=== PATIENT | male | born 1945 | race African-American/Black ===

== ENCOUNTER → 2016-11-13 | Outpatient (CLI) | payer MEDICARE, MEDICAID | LOC: RAD 07:34 | PROVIDERS: ATTEND Internal Medicine | DX: R63.4 Abnormal weight loss (principal) | CPT/HCPCS: 74176 ==

== ENCOUNTER 2018-04-15 10:38 | Emergency (ER) | payer MEDICARE, MEDICAID ==
[2018-04-15 10:53] VITALS: BP 166/93
--- NOTE | 2018-04-15 11:12 | ER Document Report ---
ED General - General Chief Complaint: High Blood Pressure Stated Complaint: BLOOD PRESSURE Time Seen by Provider: 04/15/18 11:03 TRAVEL OUTSIDE OF THE [place] IN LAST 30 DAYS: No - Related Data Allergies/Adverse Reactions: No Known Allergies Allergy (Verified 02/18/14 13:28) Past Medical History - Social History Smoking Status: Former Smoker Chew tobacco use (# tins/day): No Frequency of alcohol use: None Drug Abuse: None Family History: Reviewed & Not Pertinent, Other Patient has suicidal ideation: No Patient has homicidal ideation: No - Past Medical History Cardiac Medical History: Reports: Hx Hypercholesterolemia, Hx Hypertension Pulmonary Medical History: Reports: Hx Bronchitis, Hx COPD Neurological Medical History: Reports: Hx Cerebrovascular Accident Renal/ Medical History: Reports: Hx Benign Prostatic Hyperplasia. Denies: Hx Peritoneal Dialysis GI Medical History: Reports: Hx Gastroesophageal Reflux Disease, Hx Hepatitis - Hepatitis C Musculoskeletal Medical History: Reports Hx Arthritis Psychiatric Medical History: Reports: Hx Dementia, Hx Depression Infectious Medical History: Reports: Hx Hepatitis - Hepatitis C Past Surgical History: Reports: Hx Cardiac Surgery - pacemaker, Hx Pacemaker - Immunizations Immunizations up to date: Yes Physical Exam - Vital signs Vitals: Temp Pulse Resp BP Pulse Ox 98 F 72 18 166/93 H 100 04/15/18 10:52 04/15/18 10:52 04/15/18 10:52 04/15/18 10:52 04/15/18 10:52 Course - Vital Signs Vital signs: Temp Pulse Resp BP Pulse Ox 98 F 72 18 166/93 H 100 04/15/18 10:52 04/15/18 10:52 04/15/18 10:52 04/15/18 10:52 04/15/18 10:52 Discharge - Discharge Clinical Impression: Hypertension Qualifiers: Hypertension type: essential hypertension Qualified Code(s): I10 - Essential ( primary) hypertension Condition: Good Instructions: High Blood Pressure, Requiring Treatment ([facility]) Additional Instructions: Blood pressure was elevated today. We recommend starting him on very low-dose amlodipine for blood pressure control. Would also recommend he follow-up with your primary care physician. Return to ER for any other concerns. Prescriptions: Amlodipine Besylate [Norvasc 2.5 mg Tablet] 2.5 mg PO DAILY #30 tablet Referrals: BROOKE BARTON MD [Primary Care Provider] - Follow up as needed ANN,SEFERINO, MD [ACTIVE STAFF] - Follow up as needed
== END 2018-04-15 11:18 | disposition home or self-care (01) ==
LOC: ER 10:38
DX: I10 Essential (primary) hypertension (principal); J44.9 Chronic obstructive pulmonary disease, unspecified; Z95.0 Presence of cardiac pacemaker; Z87.891 Personal history of nicotine dependence
CPT/HCPCS: 99283

== ENCOUNTER 2019-05-17 16:07 | Emergency (ER) | payer MEDICARE, MEDICAID ==
--- NOTE | 2019-05-17 16:31 | ER Document Report ---
ED Medical Screen (RME) - General Chief Complaint: Chest Pain Stated Complaint: CHEST PAIN Time Seen by Provider: 05/17/19 16:21 Primary Care Provider: SEFERINO ANN MD [Primary Care Provider] - Follow up as needed Mode of Arrival: Wheelchair Information source: Friend Notes: He is good to meet you 73-year-old male presented to ED for "heart hurting. The person who he went to room with states that the patient is very confused with dementia she went him a room and helps to take care of him. She states he has a history of high blood pressure and palpitations. She states that last week she he came to her and told her that his heart was hurting and then when she got ready to take him to the hospital he states he did not want to go to the hospital he was better. She states today that he came into hers that he had to sit down because he was short of breath and his heart was hurting. She states she brought him to the emergency room because she is not a doctor and does not know how to take care of him when he gets like this. Patient is confused but states he is not hurting at this time. I have greeted and performed a rapid initial assessment of this patient. A comprehensive ED assessment and evaluation of the patient, analysis of test results and completion of medical decision making process will be conducted by an additional ED providers. TRAVEL OUTSIDE OF THE [place] IN LAST 30 DAYS: No - Related Data Allergies/Adverse Reactions: No Known Allergies Allergy (Verified 05/17/19 16:08) Past Medical History - Past Medical History Cardiac Medical History: Reports: Hx Hypercholesterolemia, Hx Hypertension Pulmonary Medical History: Reports: Hx Bronchitis, Hx COPD Neurological Medical History: Reports: Hx Cerebrovascular Accident Renal/ Medical History: Reports: Hx Benign Prostatic Hyperplasia. Denies: Hx Peritoneal Dialysis GI Medical History: Reports: Hx Gastroesophageal Reflux Disease, Hx Hepatitis - Hepatitis C Musculoskeltal Medical History: Reports Hx Arthritis Psychiatric Medical History: Reports: Hx Dementia, Hx Depression Infectious Medical History: Reports: Hx Hepatitis - Hepatitis C Past Surgical History: Reports: Hx Cardiac Surgery - pacemaker, Hx Pacemaker - Immunizations Immunizations up to date: Yes Doctor's Discharge - Discharge Referrals: SEFERINO ANN MD [Primary Care Provider] - Follow up as needed
--- NOTE | 2019-05-17 17:09 | ER Document Report ---
ED General - General Chief Complaint: Chest Pain Stated Complaint: CHEST PAIN Time Seen by Provider: 05/17/19 16:21 Primary Care Provider: WILLIAM HOPKINS MD [ACTIVE STAFF] - Follow up in 3-5 days SEFERINO ANN MD [Primary Care Provider] - Follow up in 3-5 days Mode of Arrival: Wheelchair Notes: Patient is a 73-year-old male that presents to the emergency department for chief complaint of intermittent chest pain. Patient is a history of dementia, history of CAD as well as stenting, apparently has been having intermittent chest pain that was occurring last week, denies any pain at this time, he reports that the pain was not better or worse with rest or exertion, denies any associated shortness of breath. He apparently has been sundowning in the evenings as well, according to his landlord, that helps him out, apparently does not have family in the area. Patient is a poor historian overall, he denies having any pain at this time, denies shortness of breath, nausea, vomiting or abdominal pain. Denies having any dysuria hematuria. Past Medical History: Dementia, hypertension, CAD, medical noncompliance Past Surgical History: Pacemaker, PCI with stenting Social History: Former smoker, denies alcohol or drug use. Family History: Reviewed and noncontributory for presenting illness Allergies: Reviewed, see documented allergy list. REVIEW OF SYSTEMS: Other than noted above, the 12 point review of systems was reviewed with the patient and were negative, all pertinent findings are included in the HPI. PHYSICAL EXAMINATION: Vital signs reviewed, nursing noted reviewed. GENERAL: Elderly male, no acute distress. Alert to self and place and person, disoriented to date. HEAD: Atraumatic, normocephalic. EYES: Eyes appear normal, extraocular movements intact, sclera anicteric, conjunctiva are normal. ENT: nares patent, oropharynx clear without exudates. Moist mucous membranes. NECK: Normal range of motion, supple without lymphadenopathy LUNGS: Breath sounds clear to auscultation bilaterally and equal. No wheezes rales or rhonchi. No chest wall tenderness HEART: Regular rate and rhythm without murmurs ABDOMEN: Soft, nontender, normoactive bowel sounds. No rebound, guarding, or rigidity. No masses appreciated. EXTREMITIES: Nontender, good range of motion, no pitting or edema. NEUROLOGICAL: No focal neurological deficits. Moves all extremities s pontaneously Motor and sensory grossly intact on exam. PSYCH: Normal mood, normal affect. SKIN: Warm, Dry, normal turgor, no rashes or lesions noted on exposed skin TRAVEL OUTSIDE OF THE [place] IN LAST 30 DAYS: No - Related Data Allergies/Adverse Reactions: No Known Allergies Allergy (Verified 05/17/19 16:08) Past Medical History - General Information source: Friend - Social History Smoking Status: Former Smoker Family History: Reviewed & Not Pertinent, Other Patient has suicidal ideation: No Patient has homicidal ideation: No - Past Medical History Cardiac Medical History: Reports: Hx Hypercholesterolemia, Hx Hypertension Pulmonary Medical History: Reports: Hx Bronchitis, Hx COPD Neurological Medical History: Reports: Hx Cerebrovascular Accident Renal/ Medical History: Reports: Hx Benign Prostatic Hyperplasia. Denies: Hx Peritoneal Dialysis GI Medical History: Reports: Hx Gastroesophageal Reflux Disease, Hx Hepatitis - Hepatitis C Musculoskeletal Medical History: Reports Hx Arthritis Psychiatric Medical History: Reports: Hx Dementia, Hx Depression Infectious Medical History: Reports: Hx Hepatitis - Hepatitis C Past Surgical History: Reports: Hx Cardiac Surgery - pacemaker, Hx Pacemaker - Immunizations Immunizations up to date: Yes Physical Exam - Vital signs Vitals: Temp Pulse Resp BP Pulse Ox 98.0 F 67 20 189/100 H 98 05/17/19 16:37 05/17/19 16:37 05/17/19 16:37 05/17/19 16:37 05/17/19 16:37 Course - Re-evaluation Re-evalutation: Patient seen and examined vital signs reviewed. Laboratory data and/or imaging were ordered as appropriate for the patient's presenting symptoms and complaint, with consideration of any critical or life threatening conditions that may be associated with their obtained history and exam as noted above. Results were reviewed when available and demonstrated chest x-ray demonstrated what appeared to be a paratracheal mass or lesion, this was further investigated with a CT of the chest with contrast, that did show what appeared to be a neoplasm, with mediastinal lymphadenopathy, his blood work was otherwise unremarkable including a negative troponin, EKG was not concerning for acute ischemia. The patient was re-evaluated and was stable, had no complaints, I discussed with him the results and printed off a copy of his CT scan, and I did discuss this case with his primary care physician Dr. Mayfield, to help establish some follow- up for this patient as he has a history of not following up, and not taking his prescribed medications. I also referred him to the oncologist on-call Dr. Hopkins. Patient was also noted to have elevated blood pressure, he was given a single dose of hydralazine in the ED, and it did improve his blood pressure to a degree, but he needs to take his prescribed medications and also follow-up with primary care, he was previously on amlodipine. Evaluation was most consistent with chest discomfort, mediastinal mass, mediastinal lymphadenopathy Results were discussed with the patient at this point, after careful consideration I feel that that patient can be discharged from the emergency department, the patient was educated treatments and reasons to return to the emergency department based on their presumed diagnosis as noted above, they were advised to followup with a primary care physician in 2-3 days. Patient was agreeable to plan of care. *Note is created using voice recognition software and may contain spelling, syntax or grammatical errors. Laboratory 05/17/19 05/17/19 05/17/19 17:19 17:19 17:19 WBC 4.4 RBC 4.43 Hgb 14.1 Hct 42.3 MCV 95 MCH 31.8 MCHC 33.3 RDW 12.6 Plt Count 162 Lymph % (Auto) 14.9 [place] % (Auto) 6.5 Eos % (Auto) 1.0 Baso % (Auto) 0.9 Absolute Neuts (auto) 3.4 Absolute Lymphs (auto) 0.7 Absolute Monos (auto) 0.3 Absolute Eos (auto) 0.0 Absolute Basos (auto) 0.0 Seg Neutrophils % 76.7 Sodium Cancelled Potassium Cancelled Chloride Cancelled Carbon Dioxide Cancelled Anion Gap Cancelled BUN Cancelled Creatinine Cancelled Est GFR ( Amer) Cancelled Est GFR (Non-Af Amer) Cancelled Est GFR (MDRD) Non-Af Cancelled Glucose Cancelled Calcium Cancelled Total Bilirubin Cancelled Direct Bilirubin Cancelled Neonat Total Bilirubin Cancelled Neonat Direct Bilirubin Cancelled Neonat Indirect Bili Cancelled AST Cancelled ALT Cancelled Alkaline Phosphatase Cancelled Creatine Kinase Cancelled CK-MB (CK-2) Cancelled Troponin I Cancelled Total Protein Cancelled Albumin Cancelled Lipase Cancelled EGFR Cancelled Urine Color Urine Appearance Urine pH Ur Specific [place] Urine Protein Urine Glucose (UA) Urine Ketones Urine Blood Urine Nitrite Urine Bilirubin Urine Urobilinogen Ur Leukocyte Esterase Urine WBC (Auto) Urine RBC (Auto) Squamous Epi Cells Auto Urine Mucus (Auto) Urine Ascorbic Acid 05/17/19 05/17/19 05/17/19 18:00 18:00 18:00 WBC RBC Hgb Hct MCV MCH MCHC RDW Plt Count Lymph % (Auto) [place] % (Auto) Eos % (Auto) Baso % (Auto) Absolute Neuts (auto) Absolute Lymphs (auto) Absolute Monos (auto) Absolute Eos (auto) Absolute Basos (auto) Seg Neutrophils % Sodium Cancelled Potassium Cancelled Chloride Cancelled Carbon Dioxide Cancelled Anion Gap Cancelled BUN Cancelled Creatinine Cancelled Est GFR ( Amer) Cancelled Est GFR (Non-Af Amer) Cancelled Est GFR (MDRD) Non-Af Cancelled Glucose Cancelled Calcium Cancelled Total Bilirubin Cancelled Direct Bilirubin Cancelled Neonat Total Bilirubin Cancelled Neonat Direct Bilirubin Cancelled Neonat Indirect Bili Cancelled AST Cancelled ALT Cancelled Alkaline Phosphatase Cancelled Creatine Kinase Cancelled CK-MB (CK-2) Cancelled Troponin I Cancelled Total Protein Cancelled Albumin Cancelled Lipase Cancelled EGFR Cancelled Urine Color YELLOW Urine Appearance CLEAR Urine pH 6.0 Ur Specific [place] 1.019 Urine Protein 100 H Urine Glucose (UA) NEGATIVE Urine Ketones TRACE H Urine Blood NEGATIVE Urine Nitrite NEGATIVE Urine Bilirubin NEGATIVE Urine Urobilinogen 4.0 H Ur Leukocyte Esterase NEGATIVE Urine WBC (Auto) 1 Urine RBC (Auto) 0 Squamous Epi Cells Auto <1 Urine Mucus (Auto) RARE Urine Ascorbic Acid NEGATIVE 05/17/19 05/17/19 19:00 19:00 WBC RBC Hgb Hct MCV MCH MCHC RDW Plt Count Lymph % (Auto) [place] % (Auto) Eos % (Auto) Baso % (Auto) Absolute Neuts (auto) Absolute Lymphs (auto) Absolute Monos (auto) Absolute Eos (auto) Absolute Basos (auto) Seg Neutrophils % Sodium 138.2 Potassium 3.8 Chloride 102 Carbon Dioxide 27 Anion Gap 9 BUN 14 Creatinine 1.12 Est GFR ( Amer) > 60 Est GFR (Non-Af Amer) Est GFR (MDRD) Non-Af > 60 Glucose 104 Calcium 9.7 Total Bilirubin 1.0 Direct Bilirubin 0.4 Neonat Total Bilirubin Not Reportable Neonat Direct Bilirubin Not Reportable Neonat Indirect Bili Not Reportable AST 65 H ALT 56 Alkaline Phosphatase 92 Creatine Kinase 86 CK-MB (CK-2) 0.80 Troponin I < 0.012 Total Protein 9.1 H Albumin 4.2 Lipase 60.1 EGFR Urine Color Urine Appearance Urine pH Ur Specific [place] Urine Protein Urine Glucose (UA) Urine Ketones Urine Blood Urine Nitrite Urine Bilirubin Urine Urobilinogen Ur Leukocyte Esterase Urine WBC (Auto) Urine RBC (Auto) Squamous Epi Cells Auto Urine Mucus (Auto) Urine Ascorbic Acid Chest X-Ray 05/17/19 16:21 IMPRESSION: Findings consistent with right paratracheal mass/ adenopathy. Consider CT of the chest with contrast. Chest CT 05/17/19 19:47 IMPRESSION: 1. Large right paratracheal 4.3 cm mass, likely neoplasm. 2. Enlarged 1.6 cm right hilar lymph node is suspicious for a metastatic lymph node. 3. 7 mm nodular density in the lateral right upper lobe is likely chronic fibrosis, but could potentially be a scar carcinoma. There are no other pulmonary nodules. 4. Emphysema, with multiple bilateral bulla. 5. Incompletely visualized abdominal aortic aneurysm, at least 3 cm in diameter. Consider follow-up evaluation of the abdominal aorta (ultrasound or CT) to more reliably assess the size of the aneurysm. - Vital Signs Vital signs: Temp Pulse Resp BP Pulse Ox 98.4 F 67 17 196/99 H 100 05/17/19 20:01 05/17/19 16:37 05/17/19 20:01 05/17/19 20:01 05/17/19 20:01 - Laboratory Result Diagrams: 05/17/19 17:19 05/17/19 19:00 Laboratory results interpreted by me: 05/17/19 05/17/19 18:00 19:00 AST 65 H Total Protein 9.1 H Urine Protein 100 H Urine Ketones TRACE H Urine Urobilinogen 4.0 H - EKG Interpretation by Me Additional EKG results interpreted by me: EKG demonstrates sinus rhythm with a ventricular rate of 68 bpm, normal axis, normal intervals, no evidence of acute ischemia in this EKG, this is compared with a prior EKG from 05/16/2016, without significant change. Discharge - Discharge Clinical Impression: Mediastinal mass, Mediastinal lymphadenopathy Chest pain Qualifiers: Chest pain type: unspecified Qualified Code(s): R07.9 - Chest pain, unspecified Hypertension Qualifiers: Hypertension type: unspecified Qualified Code(s): I10 - Essential (primary) hypertension Condition: Stable Disposition: HOME, SELF-CARE Instructions: Chest Pain of Unclear Cause ([facility]) Additional Instructions: You have a mass or tumor in in your chest, that this should be evaluated by an oncologist, I do want you to follow-up with an oncologist, with Dr. Wisdom, I also want you to follow-up with Dr. Mayfield, to see what can be done about this. Please call for an appointment on Sunday. Referrals: SEFERINO ANN MD [Primary Care Provider] - Follow up in 3-5 days WILLIAM HOPKINS MD [ACTIVE STAFF] - Follow up in 3-5 days
[2019-05-17 17:32] LABS: ABSOLUTE LYMPHOCYTES (AUTO) 0.7 10^3/uL (0.5-4.7); ABSOLUTE MONOCYTES (AUTO) 0.3 10^3/uL (0.1-1.4); ABSOLUTE NEUT (AUTO) 3.4 10^3/uL (1.7-8.2); BASOPHILS % (AUTO) 0.9 % (0-2); HEMATOCRIT 42.3 % (37.9-51.0); HEMOGLOBIN 14.1 g/dL (13.5-17.0); LYMPHOCYTES % (AUTO) 14.9 % (13-45); MEAN CORPUSCULAR HEMOGLOBIN 31.8 pg (27.0-33.4); MEAN CORPUSCULAR HGB CONC 33.3 g/dL (32.0-36.0); MEAN CORPUSCULAR VOLUME 95 fl (80-97); MONOCYTES % (AUTO) 6.5 % (3-13); PLATELET COUNT 162 10^3/uL (150-450); RED BLOOD COUNT 4.43 10^6/uL (4.35-5.55); RED CELL DISTRIBUTION WIDTH 12.6 % (11.5-14.0); SEGMENTED NEUTROPHILS % (AUTO) 76.7 % (42-78); TOTAL CELLS COUNTED % (AUTO) 100 %; WHITE BLOOD COUNT 4.4 10^3/uL (4.0-10.5)
--- NOTE | 2019-05-17 17:36 | RADIOLOGY REPORT (SQ) ---
EXAM DESCRIPTION: CHEST 2 VIEWS COMPLETED DATE/TIME: 05/17/2019 5:07 pm REASON FOR STUDY: chest pain COMPARISON: [facility]PR[facility] VIEW 07/27/2015. EXAM PARAMETERS: NUMBER OF VIEWS: two views TECHNIQUE: Digital Frontal and Lateral radiographic views of the chest acquired. RADIATION DOSE: NA LIMITATIONS: none FINDINGS: LUNGS AND PLEURA: Fibrotic scarring in the right upper lobe. No acute infiltrates or effu sions. MEDIASTINUM AND HILAR STRUCTURES: There is a prominent right paratracheal mass which could represent adenopathy. HEART AND VASCULAR STRUCTURES: Heart is normal with aortic atherosclerosis. BONES: No acute findings. HARDWARE: Pacemaker leads in place. OTHER: No other significant finding. IMPRESSION: Findings consistent with right paratracheal mass/ adenopathy. Consider CT of the chest with contrast. TECHNICAL DOCUMENTATION: JOB ID: [id number] [employer]- All Rights Reserved Reading location - IP/workstation name: [email or web address]
[2019-05-17] MEDS ORDERED: HYDRALAZINE HCL INJ/PF 20 MG/1 ML SDV IV ONE (18:14)
[2019-05-17 18:27] LABS: APPEARANCE,URINE CLEAR; BILIRUBIN,URINE NEGATIVE (NEGATIVE); COLOR,URINE YELLOW; GLUCOSE, URINE NEGATIVE (NEGATIVE); KETONES,URINE TRACE mg/dL (NEGATIVE); LEUKOCYTE ESTERASE,URINE NEGATIVE (NEGATIVE); NITRITE,URINE NEGATIVE (NEGATIVE); PROTEIN,URINE 100 mg/dL (NEGATIVE); URINE SPECIFIC GRAVITY 1.019
--- NOTE | 2019-05-17 19:10 | EKG REPORT ---
SEVERITY:- NORMAL ECG - SINUS RHYTHM : Confirmed by: Brenda Abrams MD 17-May-2019 19:09:27
[2019-05-17 19:27] LABS: ALBUMIN 4.2 g/dL (3.5-5.0); ALKALINE PHOSPHATASE 92 U/L (38-126); ANION GAP 9 (5-19); ASPARTATE AMINO TRANSFERASE 65 U/L (17-59); BILIRUBIN,DIRECT 0.4 mg/dL (0.0-0.4); BLOOD UREA NITROGEN 14 mg/dL (7-20); CALCIUM 9.7 mg/dL (8.4-10.2); CARBON DIOXIDE 27 mmol/L (22-30); CHLORIDE 102 mmol/L (98-107); CREATINE KINASE 86 U/L (55-170); GLUCOSE 104 mg/dL (75-110); POTASSIUM 3.8 mmol/L (3.6-5.0); TOTAL PROTEIN 9.1 g/dL (6.3-8.2)
[2019-05-17 19:42] LABS: TROPONIN I < 0.012 ng/mL
--- NOTE | 2019-05-17 21:19 | RADIOLOGY REPORT (SQ) ---
EXAM DESCRIPTION: [facility]: CT CHEST WITH IV CONTRAST CLINICAL HISTORY: 73 years Male; paratracheal mass on CXR TECHNIQUE: CT of the chest using intravenous contrast. All CT scans at this facility use dose modulation, iterative reconstruction, and/or weight based dosing when appropriate to reduce radiation dose to as low as reasonably achievable. COMPARISON: CT abdomen pelvis on 11/13/2016. No previous chest CT.. FINDINGS: Chest: Lungs: There are multiple scattered bulla, mostly in the upper lobes, typical for emphysema. No pneumothorax or pleural effusion. In the right upper lobe there is focal scarring, with a 7 mm nodular density, best seen on coronal image 52 and axial image 17. No other discrete nodules. Mediastinum: Large right paratracheal soft tissue mass measures 4.3 cm AP by 3.3 cm LR by 3.7 cm SI. Enlarged right hilar lymph node is 1.6 cm diameter. No other enlarged mediastinal nodes. Esophageal caliber is normal. Aorta: Scattered calcific plaque. No aneurysm or dissection. Pacemaker is noted. No axillary adenopathy or chest wall mass. Bones:No acute bone findings. No suspicious lytic or blastic bone lesions. Visualized portions of the upper abdominal solid organs are unremarkable. A hiatal hernia is noted. The infrarenal abdominal aorta is only partially visualized, but measures 3 cm diameter. IMPRESSION: 1. Large right paratracheal 4.3 cm mass, likely neoplasm. 2. Enlarged 1.6 cm right hilar lymph node is suspicious for a metastatic lymph node. 3. 7 mm nodular density in the lateral right upper lobe is likely chronic fibrosis, but could potentially be a scar carcinoma. There are no other pulmonary nodules. 4. Emphysema, with multiple bilateral bulla. 5. Incompletely visualized abdominal aortic aneurysm, at least 3 cm in diameter. Consider follow-up evaluation of the abdominal aorta (ultrasound or CT) to more reliably assess the size of the aneurysm.
[2019-05-17 22:37] VITALS: BP 175/85
== END 2019-05-17 22:15 | disposition home or self-care (01) ==
LOC: ER 16:07
DX: R07.9 Chest pain, unspecified (principal); R59.0 Localized enlarged lymph nodes; R93.89 Abnormal findings on diagnostic imaging of other specified body structures; I10 Essential (primary) hypertension; J44.9 Chronic obstructive pulmonary disease, unspecified; F03.90 Unspecified dementia, unspecified severity, without behavioral disturbance, psychotic disturbance, mood disturbance, and anxiety; Z86.19 Personal history of other infectious and parasitic diseases
CPT/HCPCS: 93005; 99285; 96374; 36415; 82553; 82550; 83690; 85025; 80053; 81001; 84484; 71046; 71260; 93010; J0360